=== PATIENT | male | born 1980 | race Caucasian/White ===

== ENCOUNTER 2019-02-19 09:04 | Emergency (ER) | payer BC ==
[~2019-02-19] VITALS: Ht 165.1 cm; Wt 63.4 kg
--- NOTE | 2019-02-19 09:20 | NUR ---
Assumed care of patient. C/O right-sided chest pain starting at sterum and radiatin laterally x 1 week. Worse with inspiration and reproducible on palpation. Placed on NIBP and manager monitoring. NAD. at bedside. Will continue to monitor.
[2019-02-19 10:01] LABS: BASOPHILS # (AUTO) 0.02 x10^3/uL (0-0.1); BASOPHILS % (AUTO) 0 % (0-1); EOSINOPHILS # (AUTO) 0.14 x10^3/uL (0-0.4); EOSINOPHILS % (AUTO) 2 % (1-7); LYMPHOCYTES # (AUTO) 1.87 x10^3/uL (1-3.4); LYMPHOCYTES % (AUTO) 25 % (22-44); MD NO; MEAN CORPUSCULAR HGB CONC 33.7 g/dL (33.2-36.2); MEAN PLATELET VOLUME 8.6 fL (7.4-10.4); MONOCYTES # (AUTO) 0.78 x10^3/uL (0.2-0.8); MONOCYTES % (AUTO) 10 % (2-9); NEUTROPHILS # (AUTO) 4.82 x10^3/uL (1.8-6.8); NEUTROPHILS % (AUTO) 63 % (42-75); PLATELET COUNT 282 x10^3/uL (130-400); RED BLOOD COUNT 5.55 x10^6/uL (4.38-5.82); RED CELL DISTRIBUTION WIDTH 13.2 % (9.4-14.8)
[2019-02-19 10:13] LABS: ALBUMIN 4.5 g/dL (3.4-5.0); ANION GAP 9 mmol/L (5-15); CALCIUM 8.9 mg/dL (8.5-10.1); CHLORIDE 107 mmol/L (98-107)
[2019-02-19 10:18] LABS: CREATININE 1.09 mg/dL (0.7-1.3)
[2019-02-19 10:19] LABS: ALANINE AMINOTRANSFERASE 36 U/L (12-78); ALKALINE PHOSPHATASE 122 U/L (45-117); BILIRUBIN,TOTAL 0.7 mg/dL (0.2-1.0); TOTAL PROTEIN 8.4 g/dL (6.4-8.2); TROPONIN I < 0.015 ng/mL (0.000-0.045)
[2019-02-19 11:06] VITALS: BP 111/71
--- NOTE | 2019-02-19 11:06 | NUR ---
VSS. NAD. No needs at this time.
--- NOTE | 2019-02-19 11:26 | NUR ---
Patient/Caregiver given discharge instructions and they have confirmed that they understand the instructions. Patient ambulatory with steady gait.
== END 2019-02-19 11:28 ==
LOC: ED 10:19
DX: R07.89 Other chest pain (principal)
CPT/HCPCS: 36415; 71046; 80053; 84484; 85025; 93005; 99284